=== PATIENT | female | born 1985 | race Caucasian/White ===

== ENCOUNTER 2019-09-16 04:37 | Emergency (ER) | payer OTHER ==
[2019-09-16 05:24] VITALS: BP 101/62; PULSE 68; TEMP 98.7; BMI 19.8
--- NOTE | 2019-09-16 05:29 | PDOC ---
History of Present Illness - General Chief Complaint: Pain Stated Complaint: ABDONIMAL PAIN. 15WKS GESTATION - History of Present Illness Initial Comments: Amy Ann is an otherwise healthy 33yo woman, currently 15wks by US, who presents with one day of suprapubic discomfort and dysuria. She states that the symptoms first started yesterday evening and have continued to worsen over time. She reports burning pain during urination but has not noticed any hematuria; she additionally denies any vaginal bleeding, vaginal discharge, change in bowel habits, nausea/vomiting, fever/chills, or other recent symptoms. She follows with Dr Brady and states that she had an US completed as an outpatient. Past History - Past Medical History Allergies/Adverse Reactions: Allergies Allergy/AdvReac Type Severity Reaction Status Date / Time No Known Allergies Allergy Verified 09/16/19 05:24 Home Medications: Ambulatory Orders Cephalexin [Keflex] 500 mg PO Q12H 7 Days #14 capsule 09/16/19 Vit 93/Iron Fum/Folic [ Formula Tablet] 1 each PO DAILY Review of Systems - Review of Systems Comments:: General: No fevers, no chills, no weight or appetite change, no malaise HEENT: No changes in vision, no changes in hearing, no congestion, no sore throat CV: No chest pain, no palpitations, no LE edema Pulm: No SOB, no cough, no wheezing GI: No nausea or vomiting, no change in bowel habits, no melena : See HPI Musc: No back pain, no joint swelling, no recent injury Skin: No rash, no lesions, no erythema Endo: No excessive thirst, no heat/cold intolerance Heme: No unusual bruising or bleeding, no swollen glands Neuro: No syncope, no numbness/tingling, no focal weakness Vasc: No claudication Psych: No recent change in mood, no SI or HI *Physical Exam - Physical Exam General: Comfortable, no acute distress HEENT: PERRL, EOMI, MMM, voice normal, normal neck ROM Cards: RRR, no murmur appreciated Pulm: Comfortable on room air, clear to auscultation bilaterally Abd: Soft, gravid, suprapubic TTP. No rigidity, no involuntary guarding : No CVA tenderness. Normal external genitalia. Physiologic discharge. No CMT or adnexal tenderness. Os closed. Ext: Atraumatic. No LE edema. ROM intact. WWP Skin: Normal color, no rashes or lesions Neuro: A&Ox3, CN grossly intact, normal speech, motor/sensory grossly intact and symmetric Psych: Mood appropriate to situation Medical Decision Making - Medical Decision Making 09/16/19 05:29 Amy Ann is an otherwise healthy 33yo woman, currently 15wks by US, who presents with one day of suprapubic discomfort and dysuria. She denies any vaginal discharge or vaginal bleeding. - Pelvic exam reassuring, os closed, no bleeding - Urine sample at bedside cloudy; suspect UTI - UA, UCx - Acetaminophen for pain - Will complete bedside US 09/16/19 06:10 - POCUS completed. IUP noted, good movement, HR 153/min - UA grossly positive. Culture pending. - Will give keflex and d/c home to follow up with OB. Pt has appointment scheduled with Dr Brady on 09/22/[address] Leroy Elizabeth PGY2 Discharge - Discharge Information Problems reviewed: Yes Clinical Impression/Diagnosis: UTI in Qualifiers: Trimester: second trimester Qualified Code(s): O23.42 - Unspecified infection of urinary tract in , second trimester Condition: Stable Disposition: HOME - Admission No - Follow up/Referral Referrals: Janny Brady MD [Primary Care Provider] - - Patient Discharge Instructions Patient Printed Discharge Instructions: DI for Urinary Tract Infection (UTI) Additional Instructions: Discharge Instructions: You were seen in the emergency department for pain with urination and low abdominal pain. You were found to have a urinary tract infection. Home Care: - You have been prescribed an antibiotic called Keflex. Please take this as prescribed for one week. Do not stop taking the medication early, even if you feel better. - You may take acetaminophen (Tylenol) 650-1000mg every 6-8 hours as needed for pain - Make sure you go to your schedule appointment with Dr Brady next week. - Seek immediate care for worsening symptoms, if you develop back or side pain, if you have fever to 101F or higher, or if you have any other medical emergency. - Post Discharge Activity
[2019-09-16] MEDS ORDERED: ACETAMINOPHEN 325 MG TABLET (FP) PO ONE (05:31)
--- NOTE | 2019-09-16 05:37 | PDOC ---
Attending Attestation - Resident Resident Name: Emelyn Elizabeth - ED Attending Attestation I have performed the following: I have examined & evaluated the patient, The case was reviewed & discussed with the resident, I agree w/resident's findings & plan - HPI HPI: 09/16/19 06:13 see resident hpi - Physicial Exam PE: 09/16/19 06:14 agree with resident exam - Medical Decision Making 09/16/19 06:14 33-year-old female approximately 15 weeks gestational age with dysuria Urinalysis is consistent with a urinary tract infection Urine culture sent Bedside ultrasound shows a live fetus Will DC on Keflex with cultures pending and recommended follow-up with her OB/ RECEPTION INTERVIEWER
[2019-09-16] MEDS ORDERED: ACETAMINOPHEN 325 MG TABLET (FP) ONE (05:38)
[2019-09-16 06:03] LABS: EPI CELLS 1.7 /HPF (0-5/HPF); HYALINE CASTS 3 /lpf (0-8); URINE APPEARANCE TURBID; URINE BACTERIA 2124.6 /hpf (NEGATIVE); URINE BILIRUBIN NEGATIVE (NEGATIVE); URINE COLOR YELLOW; URINE GLUCOSE (UA) NEGATIVE (NEGATIVE); URINE KETONE 3+ (NEGATIVE); URINE LEUK ESTERASE 2+ (NEGATIVE); URINE NITRITE POSITIVE (NEGATIVE); URINE PROTEIN 2+ (NEGATIVE); URINE RBC 8 /hpf (0-4); URINE UROBILINOGEN 0.2 mg/dL (0.2-1.0); URINE WBC 549 /hpf (0-5)
== END 2019-09-16 06:36 | disposition home or self-care (01) ==
LOC: JER 04:37
DX: O23.42 Unspecified infection of urinary tract in pregnancy, second trimester (principal); Z3A.15 15 weeks gestation of pregnancy
CPT/HCPCS: 81003; 87086; 87186; 99282-25